=== PATIENT | female | born 1960 | race Two or more races ===

== ENCOUNTER 2024-01-29 05:57 | Emergency (ER) | payer OTHER ==
[~2024-01-29] VITALS: Ht 152.4 cm; Wt 55.8 kg
[2024-01-29] MEDS ORDERED: CEFTRIAXONE SODIUM 1,000 MG VIAL IM STA (07:28)
[2024-01-29] MEDS ORDERED: KETOROLAC TROMETHAMINE 10 MG TABLET PO STA (07:29)
[2024-01-29] MEDS ORDERED: GENTAMICIN SULF30 GM TOP (07:40)
[2024-01-29] MEDS ORDERED: CEPHALEXIN500 MG PO (07:40)
== END 2024-01-29 07:50 ==
LOC: ER 05:58
DX: H01.9 Unspecified inflammation of eyelid (principal); Z91.018 Allergy to other foods
CPT/HCPCS: 96372; 99282; J0696